=== PATIENT | male | born 1990 | race Caucasian/White ===

== ENCOUNTER 2020-08-04 15:55 | Emergency (ER) | payer SELFPAY ==
[~2020-08-04] VITALS: Ht 172.7 cm; Wt 122.5 kg
[2020-08-04 16:05] VITALS: Ht 172.7 cm; Wt 122.5 kg
[2020-08-04] MEDS ORDERED: ACETAMINOPHEN-H1 TA1 PO (17:55)
[2020-08-04] MEDS ORDERED: MOT800 PO (17:55)
[2020-08-04 18:42] VITALS: BP 110/68
== END 2020-08-04 18:43 | disposition home or self-care (01) ==
LOC: ED 15:55
DX: S83.005A Unspecified dislocation of left patella, initial encounter (principal); X58.XXXA Exposure to other specified factors, initial encounter; Y93.67 Activity, basketball; Y92.89 Other specified places as the place of occurrence of the external cause; Y99.8 Other external cause status